=== PATIENT | male | born 1945 ===

== ENCOUNTER → 2023-08-12 08:59 | Outpatient (REF) | payer OTHER, SELFPAY | LOC: MRI 3T 08:59 | PROVIDERS: ATTENDING PHYSICIAN Physician Assistant; FAMILY PHYSICIAN Family Medicine | DX: M25.511 Pain in right shoulder (principal) | CPT/HCPCS: 73221 ==

== ENCOUNTER → 2024-08-08 14:11 | Outpatient (REF) | payer OTHER, SELFPAY | LOC: RAD 14:11 | PROVIDERS: ATTENDING PHYSICIAN Psychiatry & Neurology Neurology; FAMILY PHYSICIAN Family Medicine; REFERRING PHYSICIAN Surgery Vascular Surgery | DX: I63.20 Cerebral infarction due to unspecified occlusion or stenosis of unspecified precerebral arteries (principal); I63.231 Cerebral infarction due to unspecified occlusion or stenosis of right carotid arteries; Z86.73 Personal history of transient ischemic attack (TIA), and cerebral infarction without residual deficits | CPT/HCPCS: 93880 ==

== ENCOUNTER 2025-03-09 05:48 | Day surgery (SDC) | payer OTHER, SELFPAY ==
--- NOTE | 2025-02-13 12:09 | CM ---
Demographics: confirmed
Living situation: lives independently with
Support Person Post Operatively:
History of
VN: yes, not currently on service. Patient does not remember agency.
SNF: Acute Rehab
Outpatient ; Encouraged to make an appointment for 03/13 with [facility]
Has patient purchased required equipment: patient has walker
PCP: active
Pharmacy: [facility]
Post Operative Discharge Plan: [facility], and then transition to Outpatient PT.
[2025-02-19 11:14] LABS: Hematocrit 41.8 % (39.0-52.0); Hemoglobin 14.0 g/dL (13.0-18.0); Mean Corp Hgb Conc. 33.5 g/dL (33.0-37.0); Mean Corpuscular Volume 87.4 fL (80.0-94.0); Platelet Count 177 10^3/uL (130-400); Red Cell Dist. Width 13.2 % (11.5-14.5)
[2025-02-19 12:01] LABS: ALT (SGPT) 11 U/L (0-50); AST (SGOT) 13 U/L (17-59); Albumin 4.4 g/dl (3.5-5.0); Alkaline Phosphatase 47 U/L (38-126); Blood Urea Nitrogen 18 mg/dl (9-20); Calcium 9.2 mg/dl (8.4-10.2); Carbon Dioxide 29 mmol/L (22-30); Chloride 101 mmol/L (98-107); Glucose 147 mg/dl (70-99); Potassium 4.6 mmol/L (3.5-5.1); Sodium 135 mmol/L (135-145); Total Protein 6.5 g/dl (6.3-8.2); eGFR > 60.00
[2025-02-19 13:51] VITALS: BMI 22.7
[2025-02-19 14:06] VITALS: BMI 22.7
[2025-02-19 14:07] LABS: Glycohemoglobin (HgbA1c) 7.0 % (4.0-5.9)
--- NOTE | 2025-02-23 10:09 | VNURNOTE ---
Addendum entered by Margarita Champion RN 02/24/25 15:25:
Rec'ed call back from patient. Introduced role of [facility] Liaison. Patient reports that he lives with his . Confirmed spouse's contact info.
There are 2 steps to enter. No pets.
Patient has a cane, rollator and rolling walker.
Confirmed [facility] joint protocol and post surgical plans.
Reviewed that he will have VN services initially and will then start outpatient PT.
Patient selects [facility] for his home care needs and will go to outpt PT on 03/13.
Patient is in agreement with plan and states that his will be home with him. Advised to bring RW with him day of surgery. [facility] contact number provided. Referral accepted in [facility].
Plan: [facility] per [facility] joint protocol 03/09 then outpt PT on 03/13
Original Note:
Chart reviewed. [facility] liaison called patient to review same day joint protocol. No answer, left message with contact #. [facility] referral placed in [facility].
[2025-03-09] VITALS (16 sets, daily range): BP systolic 99–146; BP diastolic 50–81
[2025-03-09] MEDS: TYLENOL 650 MG PO ×2 (06:23→16:02)
[2025-03-09] MEDS: CELEBREX 200 MG PO (06:23)
[2025-03-09] MEDS: NORMOSOL-R/PLASMALYTE-A 1000 IV ×2 (06:39→10:35)
[2025-03-09 06:45] LABS: Glucose - Point of Care 129 mg/dl (70-99)
[2025-03-09] MEDS: VANCOCIN 200 IV (06:45)
--- NOTE | 2025-03-09 08:44 | W.DS.TRANS ---
DC Summary - [employer]
-
Discharge Instructions:
Sleep Apnea Risk Low
Discharge Diagnosis/Procedures R TKA Dr. Garcia 03/09/25
Diet Diabetic, Carb Controlled
Activity With Walker
Driving Restrictions No driving
Bathing Restrictions OK to Shower
Other Services PT
Instructions:
Stand-Alone Forms: SDS Total Hip and Knee D/C
Changes to Home Medications: Yes
Discharge Medications:
DC Medications w/original date entered in [facility]
Cannibus 1 dose inhalation QPM to stimulate appetite 02/17/25
Vitamin B3, A, E 1,000 mg PO BID 02/17/25
Held on 03/09/25. Instructions: Resume on 03/24/25.
cholecalciferol (vitamin D3) 25 mcg (1,000 unit) chewable tablet (Vitamin D3) 25 mcg PO DAILY 02/17/25
clopidogrel 75 mg tablet 75 mg PO DAILY 02/17/25
Held on 03/09/25. Instructions: Resume on 03/11/25.
cyanocobalamin (vitamin B-12) 1,000 mcg tablet 1,000 mcg PO DAILY 02/17/25
finasteride 5 mg tablet 5 mg PO DAILY 02/17/25
insulin aspart U-100 100 unit/mL (3 mL) subcutaneous pen (Novolog FlexPen U-100 Insulin aspart) 1 sliding scale dose SC .QDINNER 02/17/25
lactobacillus combination no.4 3 billion cell capsule (Probiotic) 3,000 mmu cells PO DAILY 02/17/25
lorazepam 0.5 mg tablet 0.5 mg PO BID PRN anxiety 02/17/25
rosuvastatin 40 mg tablet 40 mg PO DAILY 02/17/25
mupirocin 2 % topical ointment 1 applic topical BID infection prevention #1 tube 02/18/25
tamsulosin 0.4 mg capsule 0.4 mg PO HS urinary retention #7 caps 02/19/25
dexamethasone 4 mg tablet 4 mg PO BID inflammation #6 tabs 02/20/25
famotidine 20 mg tablet 20 mg PO HS GI prophylaxis #30 tabs 02/20/25
gabapentin 300 mg capsule 300 mg PO HS sleep/pain #10 caps 02/20/25
ondansetron 4 mg disintegrating tablet 4 mg PO Q6H PRN n/v #20 tabs 02/20/25
oxycodone 5 mg tablet 5 mg PO Q6H PRN 1 tab moderate pain, 2 tabs severe pain #30 tabs 02/20/25
acetaminophen 325 mg tablet (Tylenol) 650 mg (2 x 325 mg) PO QID #0 tabs 03/09/25
amlodipine 5 mg tablet 5 mg PO BID #0 tabs 03/09/25
aspirin 325 mg tablet 325 mg PO DAILY blood clot prevention #1 tab 03/09/25
cefadroxil 500 mg capsule 500 mg PO BID infection prevention #14 caps 03/09/25
docusate sodium 100 mg capsule (Colace) 100 mg PO BID stool softner #1 cap 03/09/25
magnesium hydroxide 400 mg/5 mL oral suspension (Milk of Magnesia) 30 ml PO HS PRN constipation #1 mL 03/09/25
sennosides 8.6 mg tablet (Senokot) 17.2 mg (2 x 8.6 mg) PO BID laxative #2 tabs 03/09/25
valsartan 80 mg tablet 80 mg PO BID #0 tabs 03/09/25
Home Medication Changes
mupirocin 2 % topical ointment 1 applic topical BID infection prevention #1 tube 02/18/25
tamsulosin 0.4 mg capsule 0.4 mg PO HS urinary retention #7 caps 02/19/25
dexamethasone 4 mg tablet 4 mg PO BID inflammation #6 tabs 02/20/25
famotidine 20 mg tablet 20 mg PO HS GI prophylaxis #30 tabs 02/20/25
gabapentin 300 mg capsule 300 mg PO HS sleep/pain #10 caps 02/20/25
ondansetron 4 mg disintegrating tablet 4 mg PO Q6H PRN n/v #20 tabs 02/20/25
oxycodone 5 mg tablet 5 mg PO Q6H PRN 1 tab moderate pain, 2 tabs severe pain #30 tabs 02/20/25
acetaminophen 325 mg tablet (Tylenol) 650 mg (2 x 325 mg) PO QID #0 tabs 03/09/25
amlodipine 5 mg tablet 5 mg PO BID #0 tabs 03/09/25
aspirin 325 mg tablet 325 mg PO DAILY blood clot prevention #1 tab 03/09/25
cefadroxil 500 mg capsule 500 mg PO BID infection prevention #14 caps 03/09/25
docusate sodium 100 mg capsule (Colace) 100 mg PO BID stool softner #1 cap 03/09/25
magnesium hydroxide 400 mg/5 mL oral suspension (Milk of Magnesia) 30 ml PO HS PRN constipation #1 mL 03/09/25
sennosides 8.6 mg tablet (Senokot) 17.2 mg (2 x 8.6 mg) PO BID laxative #2 tabs 03/09/25
valsartan 80 mg tablet 80 mg PO BID #0 tabs 03/09/25
Pending Results: No
[2025-03-09 09:11] LABS: Glucose - Point of Care 143 mg/dl (70-99)
[2025-03-09] MEDS: CYKLOKAPRON 650 MG PO (11:11)
[2025-03-09] MEDS: ANCEF 5 IV (11:12)
[2025-03-09 12:05] LABS: Glucose - Point of Care 176 mg/dl (70-99)
[2025-03-09] MEDS: FLOMAX 0.8 MG PO (14:44)
[2025-03-09] MEDS: LASIX 10 MG IV (14:45)
== END 2025-03-09 16:55 | disposition home or self-care (01) ==
LOC: SDS 05:48
PROVIDERS: ATTENDING PHYSICIAN Specialist; FAMILY PHYSICIAN Family Medicine; OTHER PHYSICIAN Physician Assistant Medical; REFERRING PHYSICIAN Internal Medicine Cardiovascular Disease
DX: M17.11 Unilateral primary osteoarthritis, right knee (principal); C76.0 Malignant neoplasm of head, face and neck; Z77.39 Contact with and (suspected) exposure to other war theater; Z86.14 Personal history of Methicillin resistant Staphylococcus aureus infection
CPT/HCPCS: 27447; C1776; 36415; 73560; 80053; 82962; 83036; 85027; 87070; 97162; C1713

== ENCOUNTER 2025-03-18 15:00 | Emergency (ER) | payer OTHER, SELFPAY ==
[2025-03-18 15:12] VITALS: BP 109/56
[2025-03-18 15:53] LABS: Hematocrit 33.8 % (39.0-52.0); Hemoglobin 11.5 g/dL (13.0-18.0); Mean Corp Hgb Conc. 34.0 g/dL (33.0-37.0); Mean Corpuscular Volume 87.3 fL (80.0-94.0); Nucleated Red Blood Cells % 0 % (-); Platelet Count 230 10^3/uL (130-400); Red Cell Dist. Width 14.1 % (11.5-14.5)
[2025-03-18 16:07] LABS: Blood Urea Nitrogen 24 mg/dl (9-20); Calcium 8.9 mg/dl (8.4-10.2); Carbon Dioxide 28 mmol/L (22-30); Chloride 99 mmol/L (98-107); Glucose 209 mg/dl (70-99); Potassium 4.3 mmol/L (3.5-5.1); Sodium 133 mmol/L (135-145); eGFR > 60.00
[2025-03-18 16:18] LABS: Troponin I < 0.012 ng/ml
--- NOTE | 2025-03-18 19:46 | ED.GENMED ---
History of Present Illness
General
Chief Complaint: Breathing Problem
Source: patient
Time Seen by Provider: 03/18/25 19:36
History of Present Illness
History of Present Illness:
79-year-old male presents to the emergency room complaining of shortness of breath. Patient had a right knee replacement performed 9 days ago. Over the past few days has been feeling more short of breath. He had a telemedicine appointment with
his primary care doctor today who observed him to have an increased work of breathing just sitting on the couch. This prompted his referral to the emergency room to evaluate for PE or other causes of shortness of breath. Patient denies any black
stools or bloody stools. He denies any fever or chills. No cough. He does not have pain when he takes a deep breath. Patient is taking Plavix.
Phy Exam
Physical Exam
Physical Exam:
General: Awake, Alert, Oriented X3. No acute distress.
Vitals: unremarkable
Head: Atraumatic
Eyes: Pupils equal, EOMI
Throat: Airway intact, no exudates
Neck: Trachea midline
Lungs: Clear and equal b/l
Heart: Regular rate, no murmurs
Abd: Soft, Nontender, No pulsatile mass
Neuro: Nonfocal
Skin: Warm, dry, no rash
Extremities: pulses equal b/l, no edema. Mild swelling right lower EXTR
Scores
Heart Failure Risk
Heart Failure Risk Score: Not Applicable
Course
Orders/Labs/Results
Orders:
Orders
03/18/25 15:24
IV Insert/Care/Rem.- Treatment PRN
Pulse Ox/cont/shift [RESP] Stat
Quantity: 1
03/18/25 15:25
Electrocardiogram (*1) Stat
Reason for Study: Other
Other Reason for Exam: chest pain
CT Chest PE Study Urgent
Comment:
Reason For Exam: Shortness of breath/recent knee surgery
Cardiac Monitoring- Treatment ONCE
EKG- Treatment ONCE
US Periph Venous LOWER Ext RT Urgent
Comment:
Reason For Exam: Right leg pain shortness of breath. Recent knee s
03/18/25 15:38
Basic Metabolic Panel Urgent
Complete Blood Count/With Diff Urgent
NT-proBNP Urgent
Troponin I Urgent
Abnormal Lab Results
03/18/25
15:38
WBC 14.9 H 10^3/uL
(4.8-10.8)
RBC 3.87 L 10^6/uL
(4.70-6.10)
Hgb 11.5 L g/dL
(13.0-18.0)
Hct 33.8 L %
(39.0-52.0)
MPV 11.3 H fL
(7.4-10.4)
Abs Immat Gran (auto) 0.2 H 10^3/uL
(0-0.05)
Absolute Neuts (auto) 12.4 H 10^3/uL
(1.4-6.5)
Absolute Lymphs (auto) 1.0 L 10^3/uL
(1.2-3.4)
Absolute Monos (auto) 1.1 H 10^3/uL
(0.1-0.6)
Immature Gran % 1.0 H %
(0-0.5)
Neutrophils % 83.3 H %
(42.2-75.2)
Lymphocytes % 6.7 L %
(20.5-51.1)
Sodium 133 L mmol/L
(135-145)
BUN 24 H mg/dl
(9-20)
Glucose 209 H mg/dl
(70-99)
03/18/25 15:38
03/18/25 15:38
Vital Signs
Initial and Last Documented VS:
Initial Vital Signs
Temp Pulse Resp BP Pulse Ox
97.4 F 85 18 109/56 100
03/18/25 15:12 03/18/25 15:12 03/18/25 15:12 03/18/25 15:12 03/18/25 15:12
Last Documented Vital Signs
Temp Pulse Resp BP Pulse Ox
97.4 F 85 18 109/56 100
03/18/25 15:12 03/18/25 15:12 03/18/25 15:12 03/18/25 15:12 03/18/25 21:06
MDM/Problems Addressed
Differential Diagnosis Includes:
PE, postoperative anemia, postoperative deconditioning
MDM/Problems Addressed:
Patient presents with some dyspnea with exertion. He appears stable on exam here. Lower extremity Doppler study ordered through triage shows a nonocclusive clot in the distal peroneal vein. CT of the chest shows no PE. No other acute pulmonary
pathology. Hemoglobin is 11.5 a bit lower than preoperatively not enough to make him significantly dyspneic. Overall patient seems quite stable and can be discharged. Considered anticoagulation for his partially occlusive peroneal vein
thrombosis. However he is already on Plavix and aspirin. This is a provoked clot and it does not appear to be close to the junction of more proximal vein. Therefore I believe it is reasonable to repeat the ultrasound in 1 week rather than start
anticoagulation at this time. Patient has no history of venous thromboembolism. notes he did have a intracranial hemorrhage in the past that was associated with an CVA.
*Radiology
Radiology exam reviewed: radiology read reviewed
*Pulse Oximetry
SaO2: 100
Oxygen Mode of Delivery: Room air
Patient hypoxic: no
*EKG
Interpreted by ED Provider?: Yes
Interpretation: normal
Heart Rate: 73
Rate: normal
Rhythm: sinus
[place]: normal axis
Interval: normal interval
QRS Pattern: normal QRS
Ischemia: no ischemia
*Fire Systems Inspector Interpretation
Rate: normal
Interpretation: normal
Rhythm: sinus
*Critical Care Note
Total Time (30-74mins, 75-104mins- exclusive of procedures): Not Applicable
ED Attending Note
-
Portions of this chart may have been created with voice recognition software.� Occasional wrong word or��sound alike� substitutions may have occurred due to the inherent limitations of voice recognition software.
Discharge Plan
Departure
Patient Disposition: Home (Routine Discharge)
Date of Disposition: 03/18/25
Time of Disposition: 20:57
Patient with high blood pressure during this ER visit?: No
Condition: Good
Discharge Problem:
Dyspnea, Thrombosis of right peroneal vein
Instructions: Shortness of breath in adults - ED (DC)
Prescriptions:
No Action
cyanocobalamin (vitamin B-12) 1,000 mcg Tablet
1,000 mcg PO DAILY
clopidogrel 75 mg Tablet
75 mg PO DAILY
lorazepam 0.5 mg Tablet
0.5 mg PO BID PRN (Reason: anxiety)
finasteride 5 mg Tablet
5 mg PO DAILY
insulin aspart U-100 [Novolog FlexPen U-100 Insulin] 100 unit/mL (3 mL) Insulin Pen
1 sliding scale dose SC .QDINNER
Rx Instructions:
Takes a evening meal
rosuvastatin 40 mg Tablet
40 mg PO DAILY
cholecalciferol (vitamin D3) [Vitamin D3] 25 mcg (1,000 unit) Tablet,Chewable
25 mcg PO DAILY
Probiotic 3 billion cell Capsule
3,000 mmu cells PO DAILY
Cannibus
1 dose inhalation QPM
Vitamin B3, A, E
1,000 mg PO BID
mupirocin 2 % ointment
1 applic topical BID Qty: 1 0RF
Patient Comments:
last dose was this am- pt started this 3 days ago.
tamsulosin 0.4 mg capsule
0.4 mg PO HS Qty: 7 0RF
Patient Comments:
last dose was last PM
Rx Instructions:
begin 3 nights b/f surgery
famotidine 20 mg tablet
20 mg PO HS Qty: 30 0RF
Rx Instructions:
post-op
dexamethasone 4 mg tablet
4 mg PO BID Qty: 6 0RF
Rx Instructions:
take with food
post-op use only
gabapentin 300 mg capsule
300 mg PO HS Qty: 10 0RF
Rx Instructions:
*POST-OP USE ONLY
ondansetron 4 mg tablet,disintegrating
4 mg PO Q6H PRN (Reason: n/v) Qty: 20 0RF
Rx Instructions:
take 1/2h b/f pain med if recurrent nausea
allow to dissolve in mouth w/o water
oxycodone 5 mg tablet
5 mg PO Q6H PRN (Reason: 1 tab moderate pain, 2 tabs severe pain) Qty: 30 0RF
Rx Instructions:
Ongoing therapy
POST-OP USE ONLY
sennosides [Senokot] 8.6 mg tablet
17.2 mg PO BID Qty: 2 0RF
cefadroxil 500 mg capsule
500 mg PO BID Qty: 14 0RF
Rx Instructions:
*Take w/ food
*Take w/ probiotic
*POST-OP USE
magnesium hydroxide [Milk of Magnesia] 400 mg/5 mL suspension
30 ml PO HS PRN (Reason: constipation) Qty: 1 0RF
Rx Instructions:
CONTINUE colace W/senokot-if no bowel movement 1 day POST-OP -add milk of mag
docusate sodium [Colace] 100 mg capsule
100 mg PO BID Qty: 1 0RF
acetaminophen [Tylenol] 325 mg Tablet
650 mg PO QID Qty: 0 0RF
valsartan 80 mg Tablet
80 mg PO BID Qty: 0 0RF
Rx Instructions:
hold systolic blood pressure <125 if taking Oxy
amlodipine 5 mg Tablet
5 mg PO BID Qty: 0 0RF
Rx Instructions:
hold sbp <130 if taking opioid/oxy
aspirin 81 mg tablet
81 mg PO BID Qty: 1 0RF
Referrals:
Kezia Odom MD [Family Provider, Family Practice]
Activity Restrictions/Additional Instructions:
The CT of your chest shows no clot. Your labs show mild elevation white blood cell count which is not unexpected in the postoperative phase. The rest your labs are reasonable. An ultrasound of your lungs showed a small clot in the peroneal vein
which is a vein in your calf. Given you are already on Plavix and aspirin I would not add a blood thinner at this point. This clot is likely to resolve on its own. We recommend repeating the ultrasound in 1 week. Blood thinners would be
indicated if the clot is getting bigger. Follow-up with your primary care doctor. Return to the emergency room if you feel like your leg is getting much more swollen, you are having chest pain so if anything is heading in the wrong direction.
Interventions
Interventions:
*General Assessment Last Done: 03/18/25 15:12
*Neglect/Abuse Screening Last Done: 03/18/25 15:12
*ED COVID-19 Vaccine History Last Done: 03/18/25 19:35
*ED Influenza Vaccine History Last Done: 03/18/25 19:35
[facility] Fall Risk Assessment Tool Last Done: 03/18/25 19:35
*Risk Screen - Suicide (C-SSRS) Last Done: 03/18/25 15:12
ED- Cardiac Assessment Last Done: 03/18/25 21:06
ED- Pulmonary Assessment Last Done: 03/18/25 21:06
Discharge Date and Time
Print Language: POLISH
[2025-03-18 21:30] VITALS: BP 162/63
== END 2025-03-18 21:30 | disposition home or self-care (01) ==
LOC: EMR 15:00
PROVIDERS: Emergency Medicine; EMERGENCY PHYSICIAN Emergency Medicine; FAMILY PHYSICIAN Family Medicine
DX: R06.00 Dyspnea, unspecified (principal); I82.451 Acute embolism and thrombosis of right peroneal vein; Z79.02 Long term (current) use of antithrombotics/antiplatelets; Z79.82 Long term (current) use of aspirin; Z86.73 Personal history of transient ischemic attack (TIA), and cerebral infarction without residual deficits; Z96.651 Presence of right artificial knee joint
CPT/HCPCS: 99284; 71275; 80048; 83880; 84484; 85025; 93005; 93971; Q9967